=== PATIENT | male | born 1940 | race Caucasian/White ===

== ENCOUNTER 2018-11-13 10:30 | Inpatient (IN) | payer OTHER, MEDICAID, MEDICARE ==
[2018-11-13 11:38] LABS: AADO2 Arterial 322.9 mmHg (7.0-24.0); Allen Test ACCEPTAB; Arterial Base Excess 8.9 mmol/L (-3.0-3); Arterial COHb 0.4 % (0.0-3.0); Arterial Fraction of Oxyhgb 91.4 % (93.0-99.0); Arterial HCO3 32.8 mmol/L (22.0-26.0); Arterial MetHb 0.2 % (0.0-1.5); Arterial pCO2 42.1 mmhg (35-45); MODE TRACH COLLAR; Site Right Radial
[2018-11-13 11:53] LABS: ADD MAN DIFF? NO
[2018-11-13 11:54] LABS: WHITE BLOOD COUNT 19.9 10^3/ul (4.8-10.8)
[2018-11-13 11:54] LABS: ABNORMAL IP MESSAGE 1; BASOPHILS % 0.2 % (0.0-2.0); EOSINOPHILS % 0.1 % (0.0-7.0); HEMATOCRIT 44.9 % (42.0-52.0); HEMOGLOBIN 14.6 g/dl (14.0-18.0); LYMPHOCYTES # 0.4 10^3/ul (0.8-2.9); LYMPHOCYTES % 2.1 % (15.0-51.0); MEAN CORPUSCULAR HEMOGLOBIN 30.3 pg (29.0-33.0); MEAN CORPUSCULAR HGB CONC 32.5 g/dl (32.0-37.0); MEAN CORPUSCULAR VOLUME 93.2 fl (82.0-101.0); MEAN PLATELET VOLUME 9.4 fl (7.4-10.4); MONOCYTE # 0.3 10^3/ul (0.3-0.9); MONOCYTES % 1.4 % (0.0-11.0); NEUTROPHIL # 19.1 10^3/ul (1.6-7.5); NEUTROPHILS % 95.6 % (39.0-77.0); PLATELET COUNT 237 10^3/UL (140-415); POSITIVE DIFF @See below; RED BLOOD COUNT 4.82 10^6/ul (4.70-6.10); RED CELL DISTRIBUTION WIDTH 15.6 % (11.5-14.5)
[2018-11-13] MEDS: SODIUM CHLORIDE 0.9% 1L BAG IV* (12:02)
[2018-11-13] MEDS: PIPER-TAZO 3.375 GM IV (PMX) 100 ML IVPB ×2 (12:02→22:47)
[2018-11-13 12:13] LABS: ANION GAP 7 (5-13); BLOOD UREA NITROGEN 44 mg/dl (7-20); CARBON DIOXIDE 34 mmol/L (21-31); CHLORIDE 110 mmol/L (97-110); CREATININE 1.43 mg/dl (0.61-1.24); GLUCOSE 127 mg/dl (70-220); SODIUM 151 mmol/L (135-144)
[2018-11-13 12:15] LABS: POTASSIUM 2.6 mmol/L (3.5-5.1)
[2018-11-13 12:21] LABS: INR 1.21; PROTIME 15.5 Sec (11.9-14.9); PT RATIO 1.2
[2018-11-13 12:25] LABS: TROPONIN-I 0.031 ng/ml (0.000-0.120)
[2018-11-13] MEDS: VANCOMYCIN 1 GM (PMX) 250 ML IVPB (12:47)
[2018-11-13 12:50] LABS: ADD UMIC YES; UR ASCORBIC ACID NEGATIVE (NEGATIVE); UR BILIRUBIN (Dip) NEGATIVE (NEGATIVE); UR BLOOD (Dip) 1+ mg/dL (NEGATIVE); UR CLARITY CLEAR (CLEAR); UR COLOR YELLOW (YELLOW); UR GLUCOSE (Dip) NEGATIVE (NEGATIVE); UR KETONES (Dip) NEGATIVE (NEGATIVE); UR LEUKOCYTE ESTERASE (Dip) 1+ Leu/ul (NEGATIVE); UR NITRITE (Dip) NEGATIVE (NEGATIVE); UR RBC 3 /HPF (0-5); UR SPECIFIC GRAVITY (Dip) 1.014 (1.003-1.030); UR TOTAL PROTEIN (Dip) NEGATIVE (NEGATIVE); UR UROBILINOGEN (Dip) NEGATIVE (NEGATIVE); UR WBC 18 /HPF (0-5)
[2018-11-13 13:19] LABS: CALCIUM 14.7 mg/dl (8.4-10.2)
[2018-11-13] MEDS: MAGNESIUM SULFATE 2 GM/50 ML 50 ML IVPB (13:28)
[2018-11-13] MEDS ORDERED: ACETAMINOPHEN 325 MG TAB PO (13:30)
[2018-11-13] MEDS ORDERED: ONDANSETRON 4 MG INJ IV ×2 (13:30→15:30)
[2018-11-13] MEDS: POTASSIUM CHLORIDE 50 ML IVPB ×4 (13:41→17:40)
[2018-11-13] MEDS ORDERED: NACL 0.9% 3 ML SYG IV (15:30)
[2018-11-13] MEDS ORDERED: VANCOMYCIN IV PER PHARMACY XX (15:30)
[2018-11-13] MEDS ORDERED: ACETAMINOPHEN 650 MG SUPP PR (15:30)
[2018-11-13] MEDS: D5W-0.45 NACL + KCL 40 MEQ 1,000 ML IV ×2 (15:30→23:30)
[2018-11-13] MEDS ORDERED: ACETAMINOPHEN 325/HYDROC 7.5 15 ML CUP GTB (15:30)
[2018-11-13] MEDS ORDERED: morphine 2 MG INJ IV (15:30)
[2018-11-13 15:54] LABS: ADD MAN DIFF? NO
[2018-11-13 15:57] LABS: ABNORMAL IP MESSAGE 1; BASOPHILS % 0.1 % (0.0-2.0); HEMATOCRIT 32.9 % (42.0-52.0); HEMOGLOBIN 10.5 g/dl (14.0-18.0); LYMPHOCYTES # 0.3 10^3/ul (0.8-2.9); LYMPHOCYTES % 1.5 % (15.0-51.0); MEAN CORPUSCULAR HEMOGLOBIN 30.5 pg (29.0-33.0); MEAN CORPUSCULAR HGB CONC 31.9 g/dl (32.0-37.0); MEAN CORPUSCULAR VOLUME 95.6 fl (82.0-101.0); MEAN PLATELET VOLUME 9.5 fl (7.4-10.4); MONOCYTE # 0.3 10^3/ul (0.3-0.9); MONOCYTES % 1.6 % (0.0-11.0); NEUTROPHIL # 16.7 10^3/ul (1.6-7.5); NEUTROPHILS % 96.4 % (39.0-77.0); PLATELET COUNT 165 10^3/UL (140-415); POSITIVE DIFF @See below; RED BLOOD COUNT 3.44 10^6/ul (4.70-6.10); RED CELL DISTRIBUTION WIDTH 15.3 % (11.5-14.5)
[2018-11-13 15:57] LABS: WHITE BLOOD COUNT 17.3 10^3/ul (4.8-10.8)
[2018-11-13 16:16] LABS: INR 1.58; PROTIME 19.2 Sec (11.9-14.9); PT RATIO 1.5
[2018-11-13 16:19] LABS: ANION GAP 5 (5-13); BLOOD UREA NITROGEN 24 mg/dl (7-20); CALCIUM 7.4 mg/dl (8.4-10.2); CARBON DIOXIDE 19 mmol/L (21-31); CHLORIDE 127 mmol/L (97-110); CREATINE KINASE 42 IU/L (23-200); GLUCOSE 66 mg/dl (70-220); SODIUM 151 mmol/L (135-144); URIC ACID 4.5 mg/dl (3.1-7.9)
[2018-11-13 16:20] LABS: MAGNESIUM 1.6 mg/dl (1.7-2.5); PHOSPHORUS 1.1 mg/dl (2.5-4.9)
[2018-11-13 16:21] LABS: LACTIC ACID 1.3 mmol/L (0.5-2.0)
[2018-11-13 16:29] LABS: POTASSIUM 1.6 mmol/L (3.5-5.1)
[2018-11-13 16:31] LABS: CK INDEX 2.8; CK-MB 1.18 ng/ml (0.0-2.4); TROPONIN-I < 0.012 ng/ml (0.000-0.120)
[2018-11-13] MEDS ORDERED: PAMIDRONATE 30 MG in SOD CHLORIDE 0.9% 500 ML IV (17:00)
[2018-11-13] MEDS ORDERED: PIPER-TAZO 3.375 GM IV (PMX) 100 ML IVPB (17:00)
[2018-11-13 17:22] LABS: POTASSIUM 4.8 mmol/L (3.5-5.1)
[2018-11-13] MEDS: MAGNESIUM SULFATE 4 GM/100 ML 100 ML IVPB (19:10)
[2018-11-13] MEDS: SOD CHLORIDE 0.9% 100 ML (22:22)
[2018-11-13] MEDS: IOHEXOL 300MG/ML 150 ML BTL (22:22)
[2018-11-13] MEDS: FAMOTIDINE 20 MG INJ IV (22:45)
[2018-11-13] MEDS: HEPARIN 5,000 UNIT/1 ML VIAL SC (22:45)
[2018-11-13] MEDS: TAMSULOSIN (SR) 0.4 MG CAP PO (22:45)
[2018-11-14] MEDS: POTASSIUM PHOSPHATE 30 MM in SOD CHLORIDE 0.9% 250 ML IVPB ×2 (00:14→20:49)
[2018-11-14] MEDS: VANCOMYCIN 750 MG in SOD CHLORIDE 0.9% 150 ML IVPB ×3 (00:18→23:33)
[2018-11-14] MEDS: D5W-0.45 NACL + KCL 40 MEQ 1,000 ML IV ×3 (04:42→16:20)
[2018-11-14] MEDS: LEVOTHYROXINE 100 MCG VIAL IV (05:26)
[2018-11-14] MEDS: PIPER-TAZO 3.375 GM IV (PMX) 100 ML IVPB ×3 (05:31→21:04)
[2018-11-14] MEDS: HEPARIN 5,000 UNIT/1 ML VIAL SC ×3 (05:32→21:12)
[2018-11-14] MEDS ORDERED: LEVOTHYROXINE 100 MCG TAB PO (07:00)
[2018-11-14] MEDS: FAMOTIDINE 20 MG INJ IV ×2 (09:12→20:59)
[2018-11-14] MEDS: PHYTONADIONE 10 MG/ML INJ SC (09:12)
[2018-11-14 11:47] LABS: ADD MAN DIFF? NO
[2018-11-14 11:50] LABS: WHITE BLOOD COUNT 19.8 10^3/ul (4.8-10.8)
[2018-11-14 11:50] LABS: ABNORMAL IP MESSAGE 1; BASOPHILS % 0.1 % (0.0-2.0); EOSINOPHILS % 0.2 % (0.0-7.0); HEMATOCRIT 40.1 % (42.0-52.0); LYMPHOCYTES # 0.5 10^3/ul (0.8-2.9); LYMPHOCYTES % 2.3 % (15.0-51.0); MEAN CORPUSCULAR HEMOGLOBIN 30.4 pg (29.0-33.0); MEAN CORPUSCULAR HGB CONC 32.4 g/dl (32.0-37.0); MEAN CORPUSCULAR VOLUME 93.7 fl (82.0-101.0); MEAN PLATELET VOLUME 10.6 fl (7.4-10.4); MONOCYTE # 0.2 10^3/ul (0.3-0.9); MONOCYTES % 1.2 % (0.0-11.0); NEUTROPHIL # 18.9 10^3/ul (1.6-7.5); NEUTROPHILS % 95.7 % (39.0-77.0); NUCLEATED RED BLOOD CELLS% 0.1 /100WBC (0.0-0.0); PLATELET COUNT 223 10^3/UL (140-415); POSITIVE DIFF @See below; RED BLOOD COUNT 4.28 10^6/ul (4.70-6.10); RED CELL DISTRIBUTION WIDTH 15.8 % (11.5-14.5)
[2018-11-14 12:13] LABS: ALANINE AMINOTRANSFERASE 32 IU/L (13-69); ALBUMIN 3.1 g/dl (3.3-4.9); ALKALINE PHOSPHATASE 88 IU/L (42-121); ANION GAP 11 (5-13); ASPARTATE AMINO TRANSFERASE 33 IU/L (15-46); BILIRUBIN,INDIRECT 0.3 mg/dl (0-1.1); BILIRUBIN,TOTAL 0.3 mg/dl (0.2-1.3); BLOOD UREA NITROGEN 32 mg/dl (7-20); CALCIUM 12.2 mg/dl (8.4-10.2); CARBON DIOXIDE 29 mmol/L (21-31); CHLORIDE 115 mmol/L (97-110); GLUCOSE 194 mg/dl (70-220); MAGNESIUM 3.1 mg/dl (1.7-2.5); POTASSIUM 3.4 mmol/L (3.5-5.1); SODIUM 155 mmol/L (135-144); TOTAL PROTEIN 6.2 g/dl (6.1-8.1)
[2018-11-14 12:17] LABS: PREALBUMIN 8.2 mg/dl (17.6-36.0)
[2018-11-14 12:27] LABS: FREE T4 (FREE THYROXINE) 0.28 ng/dl (0.78-2.44)
[2018-11-14] MEDS: LIDOCAINE 1% (MPF) 5 ML VIAL SC (14:30)
[2018-11-14 18:56] LABS: ANION GAP 6 (5-13); BLOOD UREA NITROGEN 29 mg/dl (7-20); CALCIUM 11.5 mg/dl (8.4-10.2); CARBON DIOXIDE 28 mmol/L (21-31); CHLORIDE 119 mmol/L (97-110); GLUCOSE 137 mg/dl (70-220); SODIUM 153 mmol/L (135-144)
[2018-11-14 18:57] LABS: PHOSPHORUS 1.6 mg/dl (2.5-4.9)
[2018-11-14 18:59] LABS: POTASSIUM 2.9 mmol/L (3.5-5.1)
[2018-11-14] MEDS: POTASSIUM CHLORIDE 40 MEQ in DEXTROSE 5% 1,000 ML IV (20:46)
[2018-11-14] MEDS: POTASSIUM CHLORIDE 100 ML IVPB ×2 (20:51→23:34)
[2018-11-14] MEDS: TAMSULOSIN (SR) 0.4 MG CAP PO (21:00)
[2018-11-14 23:45] LABS: VANCOMYCIN,TROUGH 17.4 ug/ml (10.0-20.0)
[2018-11-15] MEDS: LEVOTHYROXINE 100 MCG VIAL IV (05:32)
[2018-11-15] MEDS: PIPER-TAZO 3.375 GM IV (PMX) 100 ML IVPB ×3 (05:35→21:33)
[2018-11-15] MEDS: POTASSIUM CHLORIDE 40 MEQ in DEXTROSE 5% 1,000 ML IV ×2 (05:42→18:44)
[2018-11-15 05:56] LABS: ADD MAN DIFF? NO
[2018-11-15 05:58] LABS: WHITE BLOOD COUNT 25.3 10^3/ul (4.8-10.8)
[2018-11-15 05:58] LABS: ABNORMAL IP MESSAGE 1; BASOPHILS % 0.1 % (0.0-2.0); EOSINOPHILS # 0.1 10^3/ul (0.0-0.5); EOSINOPHILS % 0.2 % (0.0-7.0); HEMOGLOBIN 12.6 g/dl (14.0-18.0); LYMPHOCYTES # 0.7 10^3/ul (0.8-2.9); LYMPHOCYTES % 2.9 % (15.0-51.0); MEAN CORPUSCULAR HEMOGLOBIN 30.1 pg (29.0-33.0); MEAN CORPUSCULAR HGB CONC 32.3 g/dl (32.0-37.0); MEAN CORPUSCULAR VOLUME 93.3 fl (82.0-101.0); MEAN PLATELET VOLUME 9.9 fl (7.4-10.4); MONOCYTE # 0.7 10^3/ul (0.3-0.9); MONOCYTES % 2.9 % (0.0-11.0); NEUTROPHIL # 23.5 10^3/ul (1.6-7.5); NEUTROPHILS % 93.1 % (39.0-77.0); PLATELET COUNT 191 10^3/UL (140-415); POSITIVE DIFF @See below; RED BLOOD COUNT 4.18 10^6/ul (4.70-6.10); RED CELL DISTRIBUTION WIDTH 15.6 % (11.5-14.5)
[2018-11-15 06:28] LABS: INR 1.18; PROTIME 15.2 Sec (11.9-14.9); PT RATIO 1.2
[2018-11-15 06:29] LABS: PARTIAL THROMBOPLASTIN TIME 29.5 Sec (23.0-35.0)
[2018-11-15] MEDS: HEPARIN 5,000 UNIT/1 ML VIAL SC (06:33)
[2018-11-15 06:36] LABS: MAGNESIUM 2.6 mg/dl (1.7-2.5)
[2018-11-15 06:36] LABS: PHOSPHORUS 2.8 mg/dl (2.5-4.9)
[2018-11-15 06:41] LABS: ANION GAP 7 (5-13); BLOOD UREA NITROGEN 27 mg/dl (7-20); CALCIUM 11.4 mg/dl (8.4-10.2); CARBON DIOXIDE 29 mmol/L (21-31); CHLORIDE 120 mmol/L (97-110); CREATININE 1.24 mg/dl (0.61-1.24); GLUCOSE 130 mg/dl (70-220); POTASSIUM 3.9 mmol/L (3.5-5.1); SODIUM 156 mmol/L (135-144)
[2018-11-15] MEDS ORDERED: PROPOFOL 200 MG INJ (07:00)
[2018-11-15] MEDS: FAMOTIDINE 20 MG INJ IV ×2 (09:29→21:32)
[2018-11-15] MEDS: LIDOCAINE 1% (MPF) 5 ML VIAL SC (13:10)
[2018-11-15] MEDS: PROPOFOL 20 ML (15:02)
[2018-11-15] MEDS: CEFAZOLIN 2 GM/50 ML (PMX) 50 ML IVPB (15:03)
[2018-11-15] MEDS: VANCOMYCIN 500 MG (PMX) 100 ML IVPB ×2 (18:43→23:34)
[2018-11-15] MEDS: TAMSULOSIN (SR) 0.4 MG CAP PO (21:00)
[2018-11-16] MEDS: POTASSIUM CHLORIDE 40 MEQ in DEXTROSE 5% 1,000 ML IV ×2 (03:06→05:24)
[2018-11-16] MEDS: LEVOTHYROXINE 100 MCG VIAL IV (05:20)
[2018-11-16] MEDS: PIPER-TAZO 3.375 GM IV (PMX) 100 ML IVPB ×3 (05:23→21:44)
[2018-11-16 06:12] LABS: ADD MAN DIFF? NO
[2018-11-16 06:14] LABS: WHITE BLOOD COUNT 20.3 10^3/ul (4.8-10.8)
[2018-11-16 06:14] LABS: BASOPHILS % 0.1 % (0.0-2.0); EOSINOPHILS # 0.1 10^3/ul (0.0-0.5); EOSINOPHILS % 0.4 % (0.0-7.0); HEMATOCRIT 36.3 % (42.0-52.0); HEMOGLOBIN 11.8 g/dl (14.0-18.0); LYMPHOCYTES # 0.7 10^3/ul (0.8-2.9); LYMPHOCYTES % 3.2 % (15.0-51.0); MEAN CORPUSCULAR HEMOGLOBIN 30.3 pg (29.0-33.0); MEAN CORPUSCULAR HGB CONC 32.5 g/dl (32.0-37.0); MEAN CORPUSCULAR VOLUME 93.1 fl (82.0-101.0); MEAN PLATELET VOLUME 10.1 fl (7.4-10.4); MONOCYTE # 0.5 10^3/ul (0.3-0.9); MONOCYTES % 2.6 % (0.0-11.0); NEUTROPHIL # 18.9 10^3/ul (1.6-7.5); PLATELET COUNT 192 10^3/UL (140-415); RED CELL DISTRIBUTION WIDTH 15.9 % (11.5-14.5)
[2018-11-16 06:39] LABS: PHOSPHORUS 2.2 mg/dl (2.5-4.9)
[2018-11-16 06:39] LABS: MAGNESIUM 2.2 mg/dl (1.7-2.5)
[2018-11-16 06:42] LABS: ANION GAP 8 (5-13); BLOOD UREA NITROGEN 23 mg/dl (7-20); CALCIUM 10.5 mg/dl (8.4-10.2); CARBON DIOXIDE 28 mmol/L (21-31); CHLORIDE 119 mmol/L (97-110); CREATININE 1.14 mg/dl (0.61-1.24); GLUCOSE 136 mg/dl (70-220); POTASSIUM 3.4 mmol/L (3.5-5.1); SODIUM 155 mmol/L (135-144)
[2018-11-16] MEDS: FAMOTIDINE 20 MG INJ IV ×2 (08:50→21:44)
[2018-11-16] MEDS: POTASSIUM PHOSPHATE 30 MM in SOD CHLORIDE 0.9% 250 ML IVPB (11:15)
[2018-11-16] MEDS: VANCOMYCIN 500 MG (PMX) 100 ML IVPB (11:34)
[2018-11-16] MEDS: HEPARIN 5,000 UNIT/1 ML VIAL SC ×2 (14:56→21:46)
[2018-11-16] MEDS: TAMSULOSIN (SR) 0.4 MG CAP PO (21:44)
[2018-11-17 00:52] LABS: VANCOMYCIN,TROUGH 20.3 ug/ml (10.0-20.0)
[2018-11-17] MEDS: VANCOMYCIN 500 MG (PMX) 100 ML IVPB ×2 (00:59→11:29)
[2018-11-17 06:10] LABS: ADD MAN DIFF? NO
[2018-11-17 06:15] LABS: WHITE BLOOD COUNT 22.4 10^3/ul (4.8-10.8)
[2018-11-17 06:15] LABS: ABNORMAL IP MESSAGE 1; BASOPHILS % 0.1 % (0.0-2.0); EOSINOPHILS # 0.1 10^3/ul (0.0-0.5); EOSINOPHILS % 0.3 % (0.0-7.0); HEMATOCRIT 37.9 % (42.0-52.0); HEMOGLOBIN 12.4 g/dl (14.0-18.0); LYMPHOCYTES # 0.8 10^3/ul (0.8-2.9); LYMPHOCYTES % 3.5 % (15.0-51.0); MEAN CORPUSCULAR HEMOGLOBIN 30.5 pg (29.0-33.0); MEAN CORPUSCULAR HGB CONC 32.7 g/dl (32.0-37.0); MEAN CORPUSCULAR VOLUME 93.3 fl (82.0-101.0); MEAN PLATELET VOLUME 10.6 fl (7.4-10.4); MONOCYTE # 0.6 10^3/ul (0.3-0.9); MONOCYTES % 2.6 % (0.0-11.0); NEUTROPHIL # 20.8 10^3/ul (1.6-7.5); PLATELET COUNT 170 10^3/UL (140-415); POSITIVE DIFF @See below; RED BLOOD COUNT 4.06 10^6/ul (4.70-6.10); RED CELL DISTRIBUTION WIDTH 15.9 % (11.5-14.5)
[2018-11-17] MEDS: LEVOTHYROXINE 100 MCG VIAL IV (06:17)
[2018-11-17] MEDS: PIPER-TAZO 3.375 GM IV (PMX) 100 ML IVPB ×3 (06:18→21:32)
[2018-11-17] MEDS: HEPARIN 5,000 UNIT/1 ML VIAL SC ×3 (06:19→21:33)
[2018-11-17 06:39] LABS: PHOSPHORUS 2.2 mg/dl (2.5-4.9)
[2018-11-17 06:39] LABS: MAGNESIUM 2.1 mg/dl (1.7-2.5)
[2018-11-17 06:50] LABS: ANION GAP 4 (5-13); BLOOD UREA NITROGEN 23 mg/dl (7-20); CALCIUM 10.2 mg/dl (8.4-10.2); CARBON DIOXIDE 28 mmol/L (21-31); CHLORIDE 118 mmol/L (97-110); CREATININE 1.14 mg/dl (0.61-1.24); GLUCOSE 175 mg/dl (70-220); POTASSIUM 3.1 mmol/L (3.5-5.1); SODIUM 150 mmol/L (135-144)
[2018-11-17] MEDS: POTASSIUM CHLORIDE 20 MEQ POWDER FOR ORAL SOLN GTB (09:35)
[2018-11-17] MEDS: FAMOTIDINE 20 MG INJ IV ×2 (09:36→21:31)
[2018-11-17] MEDS: POTASSIUM PHOSPHATE 30 MM in SOD CHLORIDE 0.9% 250 ML IVPB (11:12)
[2018-11-17 18:27] LABS: ANION GAP 5 (5-13); BLOOD UREA NITROGEN 25 mg/dl (7-20); CARBON DIOXIDE 30 mmol/L (21-31); CHLORIDE 117 mmol/L (97-110); CREATININE 1.18 mg/dl (0.61-1.24); GLUCOSE 146 mg/dl (70-220); PHOSPHORUS 2.9 mg/dl (2.5-4.9); POTASSIUM 3.6 mmol/L (3.5-5.1); SODIUM 152 mmol/L (135-144)
[2018-11-17] MEDS: TAMSULOSIN (SR) 0.4 MG CAP PO (21:31)
[2018-11-17] MEDS: morphine SULFATE/PF (2 MG/2 ML) SYG IV (21:56)
[2018-11-18] MEDS: morphine SULFATE/PF (2 MG/2 ML) SYG IV (04:30)
[2018-11-18] MEDS: LEVOTHYROXINE 100 MCG TAB GTB (05:29)
[2018-11-18] MEDS: PIPER-TAZO 3.375 GM IV (PMX) 100 ML IVPB ×3 (05:29→21:00)
[2018-11-18] MEDS: HEPARIN 5,000 UNIT/1 ML VIAL SC ×3 (05:37→21:43)
[2018-11-18 06:09] LABS: ADD MAN DIFF? NO
[2018-11-18 06:22] LABS: WHITE BLOOD COUNT 17.6 10^3/ul (4.8-10.8)
[2018-11-18 06:22] LABS: ABNORMAL IP MESSAGE 1; BASOPHILS % 0.1 % (0.0-2.0); EOSINOPHILS # 0.1 10^3/ul (0.0-0.5); EOSINOPHILS % 0.4 % (0.0-7.0); HEMATOCRIT 32.6 % (42.0-52.0); HEMOGLOBIN 10.5 g/dl (14.0-18.0); LYMPHOCYTES # 0.5 10^3/ul (0.8-2.9); MEAN CORPUSCULAR HEMOGLOBIN 29.8 pg (29.0-33.0); MEAN CORPUSCULAR HGB CONC 32.2 g/dl (32.0-37.0); MEAN CORPUSCULAR VOLUME 92.6 fl (82.0-101.0); MEAN PLATELET VOLUME 10.8 fl (7.4-10.4); MONOCYTE # 0.5 10^3/ul (0.3-0.9); MONOCYTES % 3.1 % (0.0-11.0); NEUTROPHIL # 16.4 10^3/ul (1.6-7.5); NEUTROPHILS % 92.8 % (39.0-77.0); PLATELET COUNT 135 10^3/UL (140-415); POSITIVE DIFF @See below; RED BLOOD COUNT 3.52 10^6/ul (4.70-6.10); RED CELL DISTRIBUTION WIDTH 15.9 % (11.5-14.5)
[2018-11-18 06:45] LABS: MAGNESIUM 1.9 mg/dl (1.7-2.5)
[2018-11-18 06:45] LABS: PHOSPHORUS 2.1 mg/dl (2.5-4.9)
[2018-11-18 06:46] LABS: ALANINE AMINOTRANSFERASE 32 IU/L (13-69); ALBUMIN 2.7 g/dl (3.3-4.9); ALBUMIN/GLOBULIN RATIO 1.08; ALKALINE PHOSPHATASE 87 IU/L (42-121); ANION GAP 8 (5-13); ASPARTATE AMINO TRANSFERASE 24 IU/L (15-46); BILIRUBIN,INDIRECT 0.1 mg/dl (0-1.1); BILIRUBIN,TOTAL 0.1 mg/dl (0.2-1.3); BLOOD UREA NITROGEN 25 mg/dl (7-20); CALCIUM 9.7 mg/dl (8.4-10.2); CARBON DIOXIDE 29 mmol/L (21-31); CHLORIDE 116 mmol/L (97-110); CREATININE 1.05 mg/dl (0.61-1.24); GLUCOSE 176 mg/dl (70-220); POTASSIUM 3.2 mmol/L (3.5-5.1); SODIUM 153 mmol/L (135-144); TOTAL PROTEIN 5.2 g/dl (6.1-8.1)
[2018-11-18] MEDS: FAMOTIDINE 20 MG INJ IV ×2 (09:38→21:00)
[2018-11-18] MEDS: VANCOMYCIN 750 MG (PMX) 250 ML IVPB (12:36)
[2018-11-18] MEDS: POTASSIUM PHOSPHATE 30 MM in SOD CHLORIDE 0.9% 250 ML IVPB (12:38)
[2018-11-18] MEDS: MAGNESIUM SULFATE 1 GM/D5W 100 ML IVPB (14:35)
[2018-11-18] MEDS: POTASSIUM CHLORIDE 20 MEQ POWDER FOR ORAL SOLN GTB (14:35)
[2018-11-18] MEDS: CASPOFUNGIN 70 MG in SOD CHLORIDE 0.9% 250 ML IVPB (18:55)
[2018-11-18] MEDS: COLISTIMETHATE (25 MG/ML INHAL SYG) NEB (20:00)
[2018-11-18] MEDS: TAMSULOSIN (SR) 0.4 MG CAP PO (21:00)
[2018-11-19] MEDS: morphine SULFATE/PF (2 MG/2 ML) SYG IV ×2 (03:43→21:19)
[2018-11-19 05:41] LABS: ADD MAN DIFF? NO
[2018-11-19 05:44] LABS: ABNORMAL IP MESSAGE 1; BASOPHILS % 0.2 % (0.0-2.0); EOSINOPHILS # 0.1 10^3/ul (0.0-0.5); EOSINOPHILS % 0.5 % (0.0-7.0); HEMATOCRIT 31.1 % (42.0-52.0); HEMOGLOBIN 10.2 g/dl (14.0-18.0); LYMPHOCYTES # 0.4 10^3/ul (0.8-2.9); LYMPHOCYTES % 2.5 % (15.0-51.0); MEAN CORPUSCULAR HEMOGLOBIN 30.4 pg (29.0-33.0); MEAN CORPUSCULAR HGB CONC 32.8 g/dl (32.0-37.0); MEAN CORPUSCULAR VOLUME 92.6 fl (82.0-101.0); MEAN PLATELET VOLUME 10.8 fl (7.4-10.4); MONOCYTE # 0.6 10^3/ul (0.3-0.9); MONOCYTES % 3.3 % (0.0-11.0); NEUTROPHIL # 15.8 10^3/ul (1.6-7.5); NEUTROPHILS % 92.9 % (39.0-77.0); PLATELET COUNT 128 10^3/UL (140-415); POSITIVE DIFF @See below; RED BLOOD COUNT 3.36 10^6/ul (4.70-6.10); RED CELL DISTRIBUTION WIDTH 15.8 % (11.5-14.5)
[2018-11-19 06:16] LABS: ANION GAP 4 (5-13); BLOOD UREA NITROGEN 21 mg/dl (7-20); CALCIUM 9.3 mg/dl (8.4-10.2); CARBON DIOXIDE 31 mmol/L (21-31); CHLORIDE 117 mmol/L (97-110); CREATININE 0.97 mg/dl (0.61-1.24); GLUCOSE 197 mg/dl (70-220); POTASSIUM 3.1 mmol/L (3.5-5.1); SODIUM 152 mmol/L (135-144)
[2018-11-19] MEDS: LEVOTHYROXINE 100 MCG TAB GTB (06:43)
[2018-11-19] MEDS: PIPER-TAZO 3.375 GM IV (PMX) 100 ML IVPB ×3 (06:43→21:19)
[2018-11-19] MEDS: HEPARIN 5,000 UNIT/1 ML VIAL SC ×3 (06:50→22:17)
[2018-11-19 08:37] LABS: MAGNESIUM 2.1 mg/dl (1.7-2.5)
[2018-11-19 08:37] LABS: PHOSPHORUS 2.2 mg/dl (2.5-4.9)
[2018-11-19] MEDS: FAMOTIDINE 20 MG INJ IV ×2 (09:05→21:19)
[2018-11-19] MEDS: POTASSIUM CHLORIDE 20 MEQ POWDER FOR ORAL SOLN GTB (11:17)
[2018-11-19] MEDS: POTASSIUM PHOSPHATE 30 MM in SOD CHLORIDE 0.9% 250 ML IVPB (13:33)
[2018-11-19] MEDS: CASPOFUNGIN 50 MG in SOD CHLORIDE 0.9% 250 ML IVPB (15:21)
[2018-11-19] MEDS: COLISTIMETHATE (25 MG/ML INHAL SYG) NEB (21:15)
[2018-11-19] MEDS: TAMSULOSIN (SR) 0.4 MG CAP PO (21:20)
[2018-11-20 05:58] LABS: ADD MAN DIFF? NO
[2018-11-20] MEDS: PIPER-TAZO 3.375 GM IV (PMX) 100 ML IVPB (05:59)
[2018-11-20 06:03] LABS: ABNORMAL IP MESSAGE 1; BASOPHILS % 0.1 % (0.0-2.0); EOSINOPHILS # 0.1 10^3/ul (0.0-0.5); EOSINOPHILS % 0.7 % (0.0-7.0); HEMATOCRIT 30.7 % (42.0-52.0); HEMOGLOBIN 10.1 g/dl (14.0-18.0); LYMPHOCYTES # 0.5 10^3/ul (0.8-2.9); LYMPHOCYTES % 3.3 % (15.0-51.0); MEAN CORPUSCULAR HEMOGLOBIN 30.5 pg (29.0-33.0); MEAN CORPUSCULAR HGB CONC 32.9 g/dl (32.0-37.0); MEAN CORPUSCULAR VOLUME 92.7 fl (82.0-101.0); MEAN PLATELET VOLUME 10.7 fl (7.4-10.4); MONOCYTE # 0.4 10^3/ul (0.3-0.9); MONOCYTES % 3.1 % (0.0-11.0); NEUTROPHILS % 92.2 % (39.0-77.0); PLATELET COUNT 126 10^3/UL (140-415); POSITIVE DIFF @See below; RED BLOOD COUNT 3.31 10^6/ul (4.70-6.10); RED CELL DISTRIBUTION WIDTH 16.1 % (11.5-14.5)
[2018-11-20 06:03] LABS: WHITE BLOOD COUNT 14.1 10^3/ul (4.8-10.8)
[2018-11-20] MEDS: LEVOTHYROXINE 100 MCG TAB GTB (06:03)
[2018-11-20] MEDS: HEPARIN 5,000 UNIT/1 ML VIAL SC ×3 (06:18→22:02)
[2018-11-20 06:35] LABS: ANION GAP 6 (5-13); BLOOD UREA NITROGEN 22 mg/dl (7-20); CARBON DIOXIDE 31 mmol/L (21-31); CHLORIDE 115 mmol/L (97-110); CREATININE 0.93 mg/dl (0.61-1.24); GLUCOSE 173 mg/dl (70-220); POTASSIUM 3.3 mmol/L (3.5-5.1); SODIUM 152 mmol/L (135-144)
[2018-11-20 06:38] LABS: PHOSPHORUS 2.5 mg/dl (2.5-4.9)
[2018-11-20] MEDS: FAMOTIDINE 20 MG INJ IV ×2 (09:19→21:37)
[2018-11-20] MEDS: POTASSIUM CHLORIDE 20 MEQ POWDER FOR ORAL SOLN GTB (09:20)
[2018-11-20] MEDS: COLISTIMETHATE (25 MG/ML INHAL SYG) NEB ×2 (09:51→19:42)
[2018-11-20] MEDS: morphine SULFATE/PF (2 MG/2 ML) SYG IV (12:43)
[2018-11-20] MEDS: LEVOFLOXACIN 500 MG TAB GTB (12:43)
[2018-11-20] MEDS: CEFEPIME 1GM/50 ML IVPB ×2 (14:11→21:37)
[2018-11-20] MEDS: CASPOFUNGIN 50 MG in SOD CHLORIDE 0.9% 250 ML IVPB (17:40)
[2018-11-20] MEDS: TAMSULOSIN (SR) 0.4 MG CAP PO (21:37)
[2018-11-21] MEDS: morphine SULFATE/PF (2 MG/2 ML) SYG IV (02:15)
[2018-11-21] MEDS: CEFEPIME 1GM/50 ML IVPB ×3 (05:15→21:59)
[2018-11-21] MEDS: LEVOTHYROXINE 100 MCG TAB GTB (05:16)
[2018-11-21] MEDS: LEVOFLOXACIN 500 MG TAB GTB (05:16)
[2018-11-21 05:27] LABS: ADD MAN DIFF? NO
[2018-11-21 05:32] LABS: ABNORMAL IP MESSAGE 1; BASOPHILS % 0.2 % (0.0-2.0); EOSINOPHILS # 0.1 10^3/ul (0.0-0.5); EOSINOPHILS % 0.5 % (0.0-7.0); HEMATOCRIT 30.7 % (42.0-52.0); HEMOGLOBIN 9.8 g/dl (14.0-18.0); LYMPHOCYTES # 0.4 10^3/ul (0.8-2.9); LYMPHOCYTES % 2.9 % (15.0-51.0); MEAN CORPUSCULAR HEMOGLOBIN 30.3 pg (29.0-33.0); MEAN CORPUSCULAR HGB CONC 31.9 g/dl (32.0-37.0); MEAN PLATELET VOLUME 10.8 fl (7.4-10.4); MONOCYTE # 0.4 10^3/ul (0.3-0.9); MONOCYTES % 2.9 % (0.0-11.0); NEUTROPHIL # 12.4 10^3/ul (1.6-7.5); PLATELET COUNT 131 10^3/UL (140-415); POSITIVE DIFF @See below; RED BLOOD COUNT 3.23 10^6/ul (4.70-6.10)
[2018-11-21 05:32] LABS: WHITE BLOOD COUNT 13.3 10^3/ul (4.8-10.8)
[2018-11-21 05:48] LABS: INR 1.08; PROTIME 14.1 Sec (11.9-14.9); PT RATIO 1.1
[2018-11-21 05:49] LABS: PARTIAL THROMBOPLASTIN TIME 44.7 Sec (23.0-35.0)
[2018-11-21 05:56] LABS: ANION GAP 4 (5-13); BLOOD UREA NITROGEN 24 mg/dl (7-20); CARBON DIOXIDE 30 mmol/L (21-31); CHLORIDE 116 mmol/L (97-110); CREATININE 0.85 mg/dl (0.61-1.24); GLUCOSE 167 mg/dl (70-220); POTASSIUM 3.2 mmol/L (3.5-5.1); SODIUM 150 mmol/L (135-144)
[2018-11-21] MEDS: HEPARIN 5,000 UNIT/1 ML VIAL SC ×3 (06:41→22:17)
[2018-11-21 06:53] LABS: MAGNESIUM 2.1 mg/dl (1.7-2.5)
[2018-11-21] MEDS: FAMOTIDINE 20 MG INJ IV ×2 (08:38→21:59)
[2018-11-21] MEDS: POTASSIUM CHLORIDE 20 MEQ POWDER FOR ORAL SOLN GTB (08:38)
[2018-11-21] MEDS: COLISTIMETHATE (25 MG/ML INHAL SYG) NEB ×2 (09:01→20:46)
[2018-11-21] MEDS: CASPOFUNGIN 50 MG in SOD CHLORIDE 0.9% 250 ML IVPB (15:21)
[2018-11-21] MEDS: D5W + KCL 20 MEQ 1,000 ML IV (15:21)
[2018-11-21] MEDS: TAMSULOSIN (SR) 0.4 MG CAP PO (21:59)
[2018-11-22 05:06] LABS: ADD MAN DIFF? NO
[2018-11-22 05:12] LABS: ABNORMAL IP MESSAGE 1; BASOPHILS % 0.2 % (0.0-2.0); EOSINOPHILS # 0.1 10^3/ul (0.0-0.5); EOSINOPHILS % 0.3 % (0.0-7.0); HEMATOCRIT 30.1 % (42.0-52.0); HEMOGLOBIN 9.7 g/dl (14.0-18.0); LYMPHOCYTES # 0.5 10^3/ul (0.8-2.9); LYMPHOCYTES % 2.8 % (15.0-51.0); MEAN CORPUSCULAR HEMOGLOBIN 30.1 pg (29.0-33.0); MEAN CORPUSCULAR HGB CONC 32.2 g/dl (32.0-37.0); MEAN CORPUSCULAR VOLUME 93.5 fl (82.0-101.0); MEAN PLATELET VOLUME 11.2 fl (7.4-10.4); MONOCYTE # 0.4 10^3/ul (0.3-0.9); MONOCYTES % 2.6 % (0.0-11.0); NEUTROPHILS % 93.7 % (39.0-77.0); PLATELET COUNT 125 10^3/UL (140-415); POSITIVE DIFF @See below; RED BLOOD COUNT 3.22 10^6/ul (4.70-6.10)
[2018-11-22 05:43] LABS: ALANINE AMINOTRANSFERASE 20 IU/L (13-69); ALBUMIN 2.6 g/dl (3.3-4.9); ALBUMIN/GLOBULIN RATIO 0.89; ALKALINE PHOSPHATASE 83 IU/L (42-121); ANION GAP 3 (5-13); ASPARTATE AMINO TRANSFERASE 21 IU/L (15-46); BLOOD UREA NITROGEN 24 mg/dl (7-20); CALCIUM 9.3 mg/dl (8.4-10.2); CARBON DIOXIDE 30 mmol/L (21-31); CHLORIDE 115 mmol/L (97-110); CREATININE 0.83 mg/dl (0.61-1.24); GLUCOSE 200 mg/dl (70-220); INR 1.06; PARTIAL THROMBOPLASTIN TIME 40.5 Sec (23.0-35.0); POTASSIUM 3.3 mmol/L (3.5-5.1); PROTIME 13.9 Sec (11.9-14.9); PT RATIO 1.1; SODIUM 148 mmol/L (135-144); TOTAL PROTEIN 5.5 g/dl (6.1-8.1)
[2018-11-22] MEDS: LEVOTHYROXINE 100 MCG TAB GTB (06:36)
[2018-11-22] MEDS: D5W + KCL 20 MEQ 1,000 ML IV (06:36)
[2018-11-22] MEDS: CEFEPIME 1GM/50 ML IVPB (06:36)
[2018-11-22] MEDS: LEVOFLOXACIN 500 MG TAB GTB (06:36)
[2018-11-22] MEDS: HEPARIN 5,000 UNIT/1 ML VIAL SC ×3 (06:41→21:14)
[2018-11-22] MEDS: COLISTIMETHATE (25 MG/ML INHAL SYG) NEB ×2 (08:37→20:15)
[2018-11-22] MEDS: POTASSIUM CHLORIDE 20 MEQ POWDER FOR ORAL SOLN GTB (09:02)
[2018-11-22] MEDS: FAMOTIDINE 20 MG INJ IV (09:02)
[2018-11-22] MEDS: morphine SULFATE/PF (2 MG/2 ML) SYG IV ×2 (09:27→14:42)
[2018-11-22] MEDS: CASPOFUNGIN 50 MG in SOD CHLORIDE 0.9% 250 ML IVPB (16:26)
[2018-11-22] MEDS: ALTEPLASE (CATHFLO) 2 MG INJ CATHETER (18:40)
[2018-11-22] MEDS: TAMSULOSIN (SR) 0.4 MG CAP PO (21:12)
[2018-11-22] MEDS: FAMOTIDINE 20 MG TAB GTB (21:12)
[2018-11-23] MEDS: LEVOFLOXACIN 500 MG TAB GTB (07:02)
[2018-11-23] MEDS: LEVOTHYROXINE 100 MCG TAB GTB (07:02)
[2018-11-23] MEDS: HEPARIN 5,000 UNIT/1 ML VIAL SC ×3 (07:04→20:46)
[2018-11-23] MEDS: FAMOTIDINE 20 MG TAB GTB ×2 (09:01→20:47)
[2018-11-23] MEDS: POTASSIUM CHLORIDE 20 MEQ POWDER FOR ORAL SOLN GTB (09:02)
[2018-11-23] MEDS: COLISTIMETHATE (25 MG/ML INHAL SYG) NEB ×2 (10:05→20:17)
[2018-11-23] MEDS: CASPOFUNGIN 50 MG in SOD CHLORIDE 0.9% 250 ML IVPB (15:51)
[2018-11-23] MEDS: TAMSULOSIN (SR) 0.4 MG CAP PO (20:47)
[2018-11-24 06:05] LABS: ADD MAN DIFF? NO
[2018-11-24 06:11] LABS: ABNORMAL IP MESSAGE 1; BASOPHILS % 0.1 % (0.0-2.0); EOSINOPHILS # 0.1 10^3/ul (0.0-0.5); EOSINOPHILS % 0.4 % (0.0-7.0); HEMATOCRIT 30.1 % (42.0-52.0); HEMOGLOBIN 9.7 g/dl (14.0-18.0); LYMPHOCYTES # 0.6 10^3/ul (0.8-2.9); LYMPHOCYTES % 3.9 % (15.0-51.0); MEAN CORPUSCULAR HEMOGLOBIN 30.2 pg (29.0-33.0); MEAN CORPUSCULAR HGB CONC 32.2 g/dl (32.0-37.0); MEAN CORPUSCULAR VOLUME 93.8 fl (82.0-101.0); MEAN PLATELET VOLUME 11.3 fl (7.4-10.4); MONOCYTE # 0.4 10^3/ul (0.3-0.9); MONOCYTES % 3.1 % (0.0-11.0); NEUTROPHILS % 91.9 % (39.0-77.0); PLATELET COUNT 151 10^3/UL (140-415); POSITIVE DIFF @See below; RED BLOOD COUNT 3.21 10^6/ul (4.70-6.10); RED CELL DISTRIBUTION WIDTH 15.9 % (11.5-14.5)
[2018-11-24 06:11] LABS: WHITE BLOOD COUNT 14.2 10^3/ul (4.8-10.8)
[2018-11-24] MEDS ORDERED: VITAMIN A & D 5 GM OINT PACKET TOP (06:20)
[2018-11-24 06:29] LABS: INR 1.08; PARTIAL THROMBOPLASTIN TIME 35.1 Sec (23.0-35.0); PROTIME 14.1 Sec (11.9-14.9); PT RATIO 1.1
[2018-11-24 06:30] LABS: ALANINE AMINOTRANSFERASE 17 IU/L (13-69); ALBUMIN 2.6 g/dl (3.3-4.9); ALBUMIN/GLOBULIN RATIO 0.78; ALKALINE PHOSPHATASE 81 IU/L (42-121); ANION GAP 3 (5-13); ASPARTATE AMINO TRANSFERASE 20 IU/L (15-46); BLOOD UREA NITROGEN 23 mg/dl (7-20); CALCIUM 9.8 mg/dl (8.4-10.2); CARBON DIOXIDE 31 mmol/L (21-31); CHLORIDE 109 mmol/L (97-110); CREATININE 0.74 mg/dl (0.61-1.24); GLUCOSE 158 mg/dl (70-220); POTASSIUM 3.4 mmol/L (3.5-5.1); SODIUM 143 mmol/L (135-144); TOTAL PROTEIN 5.9 g/dl (6.1-8.1)
[2018-11-24] MEDS: LEVOTHYROXINE 100 MCG TAB GTB (06:36)
[2018-11-24] MEDS: LEVOFLOXACIN 500 MG TAB GTB (06:36)
[2018-11-24] MEDS: HEPARIN 5,000 UNIT/1 ML VIAL SC ×3 (06:38→22:07)
[2018-11-24] MEDS: POTASSIUM CHLORIDE 20 MEQ POWDER FOR ORAL SOLN GTB (08:21)
[2018-11-24] MEDS: FAMOTIDINE 20 MG TAB GTB ×2 (08:21→20:46)
[2018-11-24] MEDS: COLISTIMETHATE (25 MG/ML INHAL SYG) NEB ×2 (16:04→21:22)
[2018-11-24] MEDS: CASPOFUNGIN 50 MG in SOD CHLORIDE 0.9% 250 ML IVPB (16:29)
[2018-11-24] MEDS: morphine LIQ (10 MG/5 ML) CUP GTB (16:30)
[2018-11-24] MEDS: TAMSULOSIN (SR) 0.4 MG CAP PO (20:46)
[2018-11-25] MEDS: LEVOTHYROXINE 100 MCG TAB GTB (05:34)
[2018-11-25] MEDS: LEVOFLOXACIN 500 MG TAB GTB (05:34)
[2018-11-25] MEDS: HEPARIN 5,000 UNIT/1 ML VIAL SC ×3 (05:43→21:40)
[2018-11-25 06:01] LABS: ADD MAN DIFF? NO
[2018-11-25 06:21] LABS: WHITE BLOOD COUNT 13.5 10^3/ul (4.8-10.8)
[2018-11-25 06:21] LABS: ABNORMAL IP MESSAGE 1; BASOPHILS % 0.1 % (0.0-2.0); EOSINOPHILS % 0.2 % (0.0-7.0); HEMATOCRIT 28.1 % (42.0-52.0); HEMOGLOBIN 9.1 g/dl (14.0-18.0); LYMPHOCYTES # 0.4 10^3/ul (0.8-2.9); LYMPHOCYTES % 2.8 % (15.0-51.0); MEAN CORPUSCULAR HEMOGLOBIN 30.7 pg (29.0-33.0); MEAN CORPUSCULAR HGB CONC 32.4 g/dl (32.0-37.0); MEAN CORPUSCULAR VOLUME 94.9 fl (82.0-101.0); MEAN PLATELET VOLUME 11.6 fl (7.4-10.4); MONOCYTE # 0.4 10^3/ul (0.3-0.9); MONOCYTES % 3.1 % (0.0-11.0); NEUTROPHIL # 12.6 10^3/ul (1.6-7.5); NEUTROPHILS % 93.3 % (39.0-77.0); PLATELET COUNT 141 10^3/UL (140-415); POSITIVE DIFF @See below; RED BLOOD COUNT 2.96 10^6/ul (4.70-6.10); RED CELL DISTRIBUTION WIDTH 16.2 % (11.5-14.5)
[2018-11-25 06:34] LABS: INR 1.09; PROTIME 14.2 Sec (11.9-14.9); PT RATIO 1.1
[2018-11-25 06:35] LABS: PARTIAL THROMBOPLASTIN TIME 35.6 Sec (23.0-35.0)
[2018-11-25 06:42] LABS: ALANINE AMINOTRANSFERASE 18 IU/L (13-69); ALBUMIN 2.6 g/dl (3.3-4.9); ALBUMIN/GLOBULIN RATIO 0.81; ALKALINE PHOSPHATASE 72 IU/L (42-121); ANION GAP 4 (5-13); ASPARTATE AMINO TRANSFERASE 19 IU/L (15-46); BLOOD UREA NITROGEN 22 mg/dl (7-20); CALCIUM 9.7 mg/dl (8.4-10.2); CARBON DIOXIDE 30 mmol/L (21-31); CHLORIDE 109 mmol/L (97-110); CREATININE 0.64 mg/dl (0.61-1.24); GLUCOSE 174 mg/dl (70-220); POTASSIUM 3.4 mmol/L (3.5-5.1); SODIUM 143 mmol/L (135-144); TOTAL PROTEIN 5.8 g/dl (6.1-8.1)
[2018-11-25] MEDS: FAMOTIDINE 20 MG TAB GTB ×2 (08:40→21:39)
[2018-11-25] MEDS: POTASSIUM CHLORIDE 20 MEQ POWDER FOR ORAL SOLN GTB ×3 (08:41→15:44)
[2018-11-25] MEDS: morphine LIQ (10 MG/5 ML) CUP GTB ×2 (08:45→15:55)
[2018-11-25] MEDS: COLISTIMETHATE (25 MG/ML INHAL SYG) NEB ×2 (09:27→20:09)
[2018-11-25] MEDS: POTASSIUM CHLORIDE (SR) 20 MEQ TAB PO (11:30)
[2018-11-25] MEDS: FINASTERIDE 5 MG TAB GTB (12:34)
[2018-11-25] MEDS: CASPOFUNGIN 50 MG in SOD CHLORIDE 0.9% 250 ML IVPB (15:44)
[2018-11-25] MEDS: TAMSULOSIN (SR) 0.4 MG CAP PO (21:39)
[2018-11-26] MEDS: HEPARIN 5,000 UNIT/1 ML VIAL SC ×3 (05:43→21:34)
[2018-11-26] MEDS: LEVOFLOXACIN 500 MG TAB GTB (05:43)
[2018-11-26] MEDS: LEVOTHYROXINE 100 MCG TAB GTB (05:43)
[2018-11-26 06:24] LABS: ADD MAN DIFF? NO
[2018-11-26 06:37] LABS: WHITE BLOOD COUNT 13.5 10^3/ul (4.8-10.8)
[2018-11-26 06:37] LABS: ABNORMAL IP MESSAGE 1; BASOPHILS % 0.2 % (0.0-2.0); EOSINOPHILS # 0.1 10^3/ul (0.0-0.5); EOSINOPHILS % 0.4 % (0.0-7.0); HEMATOCRIT 28.8 % (42.0-52.0); HEMOGLOBIN 9.2 g/dl (14.0-18.0); LYMPHOCYTES # 0.4 10^3/ul (0.8-2.9); LYMPHOCYTES % 2.7 % (15.0-51.0); MEAN CORPUSCULAR HEMOGLOBIN 30.5 pg (29.0-33.0); MEAN CORPUSCULAR HGB CONC 31.9 g/dl (32.0-37.0); MEAN CORPUSCULAR VOLUME 95.4 fl (82.0-101.0); MEAN PLATELET VOLUME 11.4 fl (7.4-10.4); MONOCYTE # 0.4 10^3/ul (0.3-0.9); NEUTROPHIL # 12.6 10^3/ul (1.6-7.5); NEUTROPHILS % 93.3 % (39.0-77.0); PLATELET COUNT 144 10^3/UL (140-415); POSITIVE DIFF @See below; RED BLOOD COUNT 3.02 10^6/ul (4.70-6.10); RED CELL DISTRIBUTION WIDTH 16.6 % (11.5-14.5)
[2018-11-26 07:08] LABS: ANION GAP 6 (5-13); BLOOD UREA NITROGEN 22 mg/dl (7-20); CALCIUM 10.1 mg/dl (8.4-10.2); CARBON DIOXIDE 33 mmol/L (21-31); CHLORIDE 105 mmol/L (97-110); CREATININE 0.65 mg/dl (0.61-1.24); GLUCOSE 167 mg/dl (70-220); PHOSPHORUS 2.2 mg/dl (2.5-4.9); POTASSIUM 3.9 mmol/L (3.5-5.1); SODIUM 144 mmol/L (135-144)
[2018-11-26] MEDS: POTASSIUM CHLORIDE 20 MEQ POWDER FOR ORAL SOLN GTB (08:44)
[2018-11-26] MEDS: morphine LIQ (10 MG/5 ML) CUP GTB (08:44)
[2018-11-26] MEDS: FAMOTIDINE 20 MG TAB GTB ×2 (08:44→21:27)
[2018-11-26] MEDS: FINASTERIDE 5 MG TAB GTB (08:44)
[2018-11-26] MEDS: NEUTRA-PHOS 250 MG PACKET GTB ×2 (10:21→21:27)
[2018-11-26] MEDS: SODIUM PHOSPHATE 15 MMOL in SOD CHLORIDE 0.9% 250 ML IVPB (10:21)
[2018-11-26] MEDS: COLISTIMETHATE (25 MG/ML INHAL SYG) NEB ×2 (10:39→20:12)
[2018-11-26 11:14] LABS: IONIZED CALCIUM 1.5 mmol/L (1.1-1.4)
[2018-11-26] MEDS: CASPOFUNGIN 50 MG in SOD CHLORIDE 0.9% 250 ML IVPB (17:23)
[2018-11-26] MEDS: TAMSULOSIN (SR) 0.4 MG CAP PO (21:27)
[2018-11-27] MEDS ORDERED: ALBUTEROL 0.083% (NEB) 2.5 MG/3 ML AMP HHN (00:30)
[2018-11-27] MEDS ORDERED: ALBUTEROL/IPRATROPIUM (NEB) 3 ML AMP (00:56)
[2018-11-27] MEDS: ALBUTEROL/IPRATROPIUM (NEB) 3 ML AMP HHN ×4 (01:01→20:57)
[2018-11-27] MEDS: morphine LIQ (10 MG/5 ML) CUP GTB ×3 (01:15→21:45)
[2018-11-27 05:37] LABS: ADD MAN DIFF? NO
[2018-11-27 05:48] LABS: ABNORMAL IP MESSAGE 1; BASOPHILS % 0.1 % (0.0-2.0); EOSINOPHILS % 0.1 % (0.0-7.0); HEMATOCRIT 25.5 % (42.0-52.0); HEMOGLOBIN 8.2 g/dl (14.0-18.0); LYMPHOCYTES # 0.3 10^3/ul (0.8-2.9); LYMPHOCYTES % 2.3 % (15.0-51.0); MEAN CORPUSCULAR HEMOGLOBIN 30.8 pg (29.0-33.0); MEAN CORPUSCULAR HGB CONC 32.2 g/dl (32.0-37.0); MEAN CORPUSCULAR VOLUME 95.9 fl (82.0-101.0); MEAN PLATELET VOLUME 11.2 fl (7.4-10.4); MONOCYTE # 0.5 10^3/ul (0.3-0.9); MONOCYTES % 3.6 % (0.0-11.0); NEUTROPHIL # 12.6 10^3/ul (1.6-7.5); NEUTROPHILS % 93.5 % (39.0-77.0); PLATELET COUNT 146 10^3/UL (140-415); POSITIVE DIFF @See below; RED BLOOD COUNT 2.66 10^6/ul (4.70-6.10); RED CELL DISTRIBUTION WIDTH 16.1 % (11.5-14.5)
[2018-11-27 05:48] LABS: WHITE BLOOD COUNT 13.5 10^3/ul (4.8-10.8)
[2018-11-27 05:59] LABS: ANION GAP 6 (5-13); BLOOD UREA NITROGEN 23 mg/dl (7-20); CALCIUM 9.8 mg/dl (8.4-10.2); CARBON DIOXIDE 32 mmol/L (21-31); CHLORIDE 104 mmol/L (97-110); CREATININE 0.63 mg/dl (0.61-1.24); GLUCOSE 156 mg/dl (70-220); PHOSPHORUS 2.8 mg/dl (2.5-4.9); POTASSIUM 3.8 mmol/L (3.5-5.1); SODIUM 142 mmol/L (135-144)
[2018-11-27] MEDS: LEVOFLOXACIN 500 MG TAB GTB (06:08)
[2018-11-27] MEDS: LEVOTHYROXINE 100 MCG TAB GTB (06:08)
[2018-11-27] MEDS: HEPARIN 5,000 UNIT/1 ML VIAL SC ×3 (06:11→21:49)
[2018-11-27 07:23] LABS: IONIZED CALCIUM 1.4 mmol/L (1.1-1.4)
[2018-11-27] MEDS: FINASTERIDE 5 MG TAB GTB (09:11)
[2018-11-27] MEDS: POTASSIUM CHLORIDE 20 MEQ POWDER FOR ORAL SOLN GTB (09:12)
[2018-11-27] MEDS: NEUTRA-PHOS 250 MG PACKET GTB ×2 (09:12→21:08)
[2018-11-27] MEDS: FAMOTIDINE 20 MG TAB GTB ×2 (09:12→21:08)
[2018-11-27] MEDS: COLISTIMETHATE (25 MG/ML INHAL SYG) NEB ×2 (09:38→20:31)
[2018-11-27] MEDS: CASPOFUNGIN 50 MG in SOD CHLORIDE 0.9% 250 ML IVPB (16:18)
[2018-11-27] MEDS: TAMSULOSIN (SR) 0.4 MG CAP PO (21:08)
[2018-11-28] MEDS: ALBUTEROL/IPRATROPIUM (NEB) 3 ML AMP HHN ×4 (01:32→20:46)
[2018-11-28] MEDS: BISACODYL 10 MG SUPP PR (03:35)
[2018-11-28 05:14] LABS: ADD MAN DIFF? NO
[2018-11-28 05:20] LABS: WHITE BLOOD COUNT 12.4 10^3/ul (4.8-10.8)
[2018-11-28 05:20] LABS: ABNORMAL IP MESSAGE 1; BASOPHILS % 0.2 % (0.0-2.0); EOSINOPHILS % 0.3 % (0.0-7.0); HEMATOCRIT 25.1 % (42.0-52.0); LYMPHOCYTES # 0.3 10^3/ul (0.8-2.9); LYMPHOCYTES % 2.5 % (15.0-51.0); MEAN CORPUSCULAR HEMOGLOBIN 30.4 pg (29.0-33.0); MEAN CORPUSCULAR HGB CONC 31.9 g/dl (32.0-37.0); MEAN CORPUSCULAR VOLUME 95.4 fl (82.0-101.0); MEAN PLATELET VOLUME 10.6 fl (7.4-10.4); MONOCYTE # 0.5 10^3/ul (0.3-0.9); MONOCYTES % 3.9 % (0.0-11.0); NEUTROPHIL # 11.5 10^3/ul (1.6-7.5); NEUTROPHILS % 92.6 % (39.0-77.0); PLATELET COUNT 157 10^3/UL (140-415); POSITIVE DIFF @See below; RED BLOOD COUNT 2.63 10^6/ul (4.70-6.10); RED CELL DISTRIBUTION WIDTH 16.7 % (11.5-14.5)
[2018-11-28 05:45] LABS: PHOSPHORUS 2.6 mg/dl (2.5-4.9)
[2018-11-28 05:46] LABS: ALANINE AMINOTRANSFERASE 14 IU/L (13-69); ALBUMIN 2.6 g/dl (3.3-4.9); ALBUMIN/GLOBULIN RATIO 0.89; ALKALINE PHOSPHATASE 73 IU/L (42-121); ANION GAP 4 (5-13); ASPARTATE AMINO TRANSFERASE 20 IU/L (15-46); BLOOD UREA NITROGEN 22 mg/dl (7-20); CALCIUM 10.1 mg/dl (8.4-10.2); CARBON DIOXIDE 33 mmol/L (21-31); CHLORIDE 104 mmol/L (97-110); CREATININE 0.62 mg/dl (0.61-1.24); GLUCOSE 144 mg/dl (70-220); SODIUM 141 mmol/L (135-144); TOTAL PROTEIN 5.5 g/dl (6.1-8.1)
[2018-11-28 05:47] LABS: POTASSIUM 3.7 mmol/L (3.5-5.1)
[2018-11-28] MEDS: LEVOFLOXACIN 500 MG TAB GTB (06:03)
[2018-11-28] MEDS: LEVOTHYROXINE 100 MCG TAB GTB (06:03)
[2018-11-28] MEDS: morphine LIQ (10 MG/5 ML) CUP GTB ×4 (06:19→21:08)
[2018-11-28] MEDS: HEPARIN 5,000 UNIT/1 ML VIAL SC ×3 (06:32→22:14)
[2018-11-28] MEDS: COLISTIMETHATE (25 MG/ML INHAL SYG) NEB ×2 (08:41→20:46)
[2018-11-28] MEDS: NEUTRA-PHOS 250 MG PACKET GTB ×2 (09:19→21:05)
[2018-11-28] MEDS: POTASSIUM CHLORIDE 20 MEQ POWDER FOR ORAL SOLN GTB (09:19)
[2018-11-28] MEDS: FINASTERIDE 5 MG TAB GTB (09:19)
[2018-11-28] MEDS: FAMOTIDINE 20 MG TAB GTB ×2 (09:19→21:05)
[2018-11-28] MEDS: CASPOFUNGIN 50 MG in SOD CHLORIDE 0.9% 250 ML IVPB (15:48)
[2018-11-28] MEDS: TAMSULOSIN (SR) 0.4 MG CAP PO (21:05)
== END 2018-11-29 00:18 | DRG 871 ==
LOC: E/R 10:30 → 6WM 13:33
PROC: 0DH63UZ Insertion of Feeding Device into Stomach, Percutaneous Approach (ICD-10-PCS; principal; 2018-11-15 14:40)
PROC: 02HV33Z Insertion of Infusion Device into Superior Vena Cava, Percutaneous Approach (ICD-10-PCS; 2018-11-15 14:40)
PROC: 3E0F7GC Introduction of Other Therapeutic Substance into Respiratory Tract, Via Natural or Artificial Opening (ICD-10-PCS; 2018-11-15 14:40)
DX: A41.9 Sepsis, unspecified organism (principal); J69.0 Pneumonitis due to inhalation of food and vomit; J96.21 Acute and chronic respiratory failure with hypoxia; E43 Unspecified severe protein-calorie malnutrition; G93.41 Metabolic encephalopathy; B37.1 Pulmonary candidiasis; J15.1 Pneumonia due to Pseudomonas; N17.9 Acute kidney failure, unspecified; E87.0 Hyperosmolality and hypernatremia; D68.9 Coagulation defect, unspecified; R65.20 Severe sepsis without septic shock; C32.9 Malignant neoplasm of larynx, unspecified; E86.0 Dehydration; E87.6 Hypokalemia; E83.42 Hypomagnesemia; E83.39 Other disorders of phosphorus metabolism; E83.52 Hypercalcemia; E03.9 Hypothyroidism, unspecified; R13.10 Dysphagia, unspecified; Z93.0 Tracheostomy status; Z68.20 Body mass index [BMI] 20.0-20.9, adult; Z87.891 Personal history of nicotine dependence
CPT/HCPCS: 36569; 36600; 70450; 70491; 71045; 71260; 76937; 80048; 80053; 80202; 81001; 82330; 82550; 82553; 82803; 82962; 83605; 83735; 84100; 84132; 84134; 84439; 84443; 84484; 84560; 85025; 85610; 85730; 87040; 87070; 87081; 87086; 89220; 92610; 93005; 93971; 94640; 94664; 96374; 96375; 97110; 97163; 97530; 99291-25; J2430